=== PATIENT | female | born 2000 | race Caucasian/White ===

== ENCOUNTER 2021-03-26 22:21 | Emergency (ER) | payer OTHER ==
[2021-03-26] MEDS ORDERED: Lidocaine 1% w/Epinephrine 1:100K 20 ML VIAL ONE (22:28)
[2021-03-26] MEDS ORDERED: Bacitracin 1 PK ONE (23:14)
== END 2021-03-27 00:03 | disposition home or self-care (01) ==
LOC: ERS 22:21
DX: S81.812A Laceration without foreign body, left lower leg, initial encounter (principal); S31.821A Laceration without foreign body of left buttock, initial encounter; J45.909 Unspecified asthma, uncomplicated; F17.290 Nicotine dependence, other tobacco product, uncomplicated; W25.XXXA Contact with sharp glass, initial encounter
CPT/HCPCS: 12004